=== PATIENT | female | born 1970 | race Caucasian/White ===

== ENCOUNTER → 2017-08-19 | Outpatient (CLI) | payer OTHER | END | disposition home or self-care (01) | LOC: PCVCIMAG 14:52 | DX: I31.3 Pericardial effusion (noninflammatory) (principal); R20.0 Anesthesia of skin | CPT/HCPCS: 93306 ==

== ENCOUNTER → 2018-10-17 | Outpatient (CLI) | payer OTHER ==
--- NOTE | 2018-10-17 09:39 | PCVCIMAG ---
EXAM: BILATERAL RENAL ULTRASOUND INDICATION: Flank pain. Family history of kidney cancer. FINDINGS: Right kidney: Length measures 10.1 cm. No hydronephrosis or extensive renal scarring. No obvious focal renal lesions identified. Left kidney: Length measures 10.7 cm. No hydronephrosis or extensive renal scarring. No obvious focal renal lesions identified. Bladder: No obvious abnormalities. IMPRESSION: No hydronephrosis. No obvious focal renal lesions. Please note CT examination of the kidneys with and without IV contrast would be more sensitive for focal renal lesions. LOC:OFFICE
== END | disposition home or self-care (01) ==
LOC: PCVCIMAG 10:46
PROVIDERS: ATTEND Internal Medicine
DX: R10.9 Unspecified abdominal pain (principal); Z80.51 Family history of malignant neoplasm of kidney
CPT/HCPCS: 76770